=== PATIENT | female | born 1970 | race Caucasian/White ===

== ENCOUNTER 2018-03-21 14:48 | Outpatient (REF) | payer BC, MEDICAID, SELFPAY | END 2018-03-21 15:08 | LOC: NCHCN 14:48 | PROVIDERS: PCP Family Medicine; Visit Provider Family Medicine | DX: R35.0 Frequency of micturition (principal); E31.9 Polyglandular dysfunction, unspecified | CPT/HCPCS: 87077; 87086; 87186 ==

== ENCOUNTER 2018-10-11 19:03 | Outpatient (REF) | payer MEDICAID, SELFPAY ==
[2018-10-11 22:08] LABS: ALT 18 U/L (12-78); AST 12 U/L (15-37); Albumin 3.7 g/dL (3.4-5.0); Alkaline Phosphatase 52 U/L (46-116); Anion Gap 9.1 mmol/L (3-11); BUN 18 mg/dL (7-18); Bilirubin, Total 0.5 mg/dL (0.2-1.0); CO2 25.9 mmol/L (21.0-32.0); CREATININE 0.87 mg/dL (0.55-1.02); Calcium 8.7 mg/dL (8.5-10.1); Chloride 104 mmol/L (98-107); Glucose 87 mg/dL (70-100); Potassium 3.8 mmol/L (3.5-5.1); Sodium 139 mmol/L (136-145); Total Protein 6.7 g/dL (6.4-8.2)
== END 2018-10-11 19:23 ==
LOC: NCHCN 19:03
PROVIDERS: PCP Family Medicine; Visit Provider Family Medicine
DX: B35.1 Tinea unguium (principal)
CPT/HCPCS: 80053

== ENCOUNTER 2018-11-08 15:46 | Outpatient (REF) | payer MEDICAID, SELFPAY ==
[2018-11-08 22:12] LABS: ALT 23 U/L (12-78); AST 15 U/L (15-37); Albumin 3.8 g/dL (3.4-5.0); Alkaline Phosphatase 61 U/L (46-116); Bilirubin, Direct 0.13 mg/dL (0.00-0.20); Bilirubin, Total 0.5 mg/dL (0.2-1.0); Total Protein 6.7 g/dL (6.4-8.2)
== END 2018-11-08 16:06 ==
LOC: NCHCN 15:46
PROVIDERS: PCP Family Medicine; Visit Provider Family Medicine
DX: B35.1 Tinea unguium (principal)
CPT/HCPCS: 80076

== ENCOUNTER 2019-01-26 10:13 | Outpatient (REF) | payer MEDICAID, SELFPAY ==
[2019-01-26 21:24] LABS: CREATININE 0.79 mg/dL (0.55-1.02)
== END 2019-01-26 10:33 ==
LOC: NCHCN 10:13
PROVIDERS: PCP Family Medicine; Visit Provider Family Medicine
DX: Z79.899 Other long term (current) drug therapy (principal); M25.562 Pain in left knee
CPT/HCPCS: 82565

== ENCOUNTER 2019-03-26 15:21 | Outpatient (REF) | payer MEDICAID, SELFPAY ==
--- NOTE | 2019-03-26 13:30 | PAPFT_PTH ---
PATIENT: Chiquita Gómez LOC: [facility]#:[id number] AGE/SX: 49/F ROOM: RE03/26/[address]: Kaylah Alvarez : 1970 BED: DIS: 03/26/2019 SPEC #: [id number] RECD: 03/27/19 13:00 STATUS: FARNAZ REQ #: [id number] JANUSZ: 03/26/19 13:[address]: Kaylah Alvarez DEPT: [facility] Cytology RECD BY: Nadiya Lomax ENTERED: 03/27/19 13:00 SP TYPE: PAPFT OTHR DR: Denis Felix Tissues: 1 - CX/ENDOCX FOR PAP SMEARS Procedures: PAP THIN PREP/UVM Screening HPV DNA PROBE Comments: [id number]
== END 2019-03-26 15:41 ==
LOC: NCHCN 15:21
PROVIDERS: PCP Family Medicine; Visit Provider Family Medicine
DX: Z12.4 Encounter for screening for malignant neoplasm of cervix (principal); Z11.51 Encounter for screening for human papillomavirus (HPV)
CPT/HCPCS: 88142; 87624

== ENCOUNTER 2019-10-30 10:30 | Outpatient (REF) | payer MEDICAID, SELFPAY ==
[2019-10-30 20:48] LABS: ALT 21 U/L (14-59); AST 15 U/L (15-37); Albumin 4.2 g/dL (3.4-5.0); Alkaline Phosphatase 71 U/L (46-116); Bilirubin, Direct 0.14 mg/dL (0.00-0.20); Bilirubin, Total 0.6 mg/dL (0.2-1.0); Total Protein 7.3 g/dL (6.4-8.2)
== END 2019-10-30 10:50 ==
LOC: NCHCN 10:30
PROVIDERS: PCP Family Medicine; Visit Provider Family Medicine
DX: B35.1 Tinea unguium (principal)
CPT/HCPCS: 80076

== ENCOUNTER 2020-08-04 16:29 | Outpatient (REF) | payer MEDICAID, SELFPAY ==
[2020-08-05 11:32] LABS: HBs Antibody, Quant >1000.0 mIU/mL (See Note); Hepatitis B Surface Ab Positive (See Note); Measles IgG Antibody Positive (See Note); Mumps Antibody IgG Positive (See Note); Rubella IgG Ab (UVM) Positive (See Note); Varicella IgG Antibody Positive (See Note)
== END 2020-08-04 16:30 | disposition home or self-care (01) ==
LOC: NCHCN 16:29
PROVIDERS: PCP Family Medicine; Visit Provider Family Medicine
DX: Z13.89 Encounter for screening for other disorder (principal); Z11.59 Encounter for screening for other viral diseases; Z01.84 Encounter for antibody response examination
CPT/HCPCS: 86706; 86787; 86735; 86762; 86765

== ENCOUNTER 2020-09-26 15:08 | Outpatient (REF) | payer MEDICAID, SELFPAY ==
[2020-09-26 21:21] LABS: ALT 15 U/L (14-59); AST 12 U/L (15-37); Albumin 3.8 g/dL (3.4-5.0); Alkaline Phosphatase 60 U/L (46-116); Anion Gap 11.9 mmol/L (3-11); BUN 16 mg/dL (7-18); CO2 25.1 mmol/L (21.0-32.0); CREATININE 0.7 mg/dL (0.55-1.02); Chloride 104 mmol/L (98-107); Glucose 82 mg/dL (74-106); Potassium 4.2 mmol/L (3.5-5.1); Sodium 141 mmol/L (136-145); Total Protein 6.8 g/dL (6.4-8.2)
== END 2020-09-26 15:09 | disposition home or self-care (01) ==
LOC: NCHCN 15:08
PROVIDERS: PCP Family Medicine; Visit Provider Family Medicine
DX: F10.10 Alcohol abuse, uncomplicated (principal)
CPT/HCPCS: 80053

== ENCOUNTER 2020-11-21 11:20 | Outpatient (REF) | payer MEDICAID, SELFPAY ==
[2020-11-24 09:12] LABS: Hepatitis C Ab w Rflx HCV PCR Negative (Negative)
[2020-11-24 09:28] LABS: HIV-1/2 Ag & Ab Screen Negative (Negative)
[2020-11-24 11:42] LABS: Syphilis Serology (RPR) Negative (Negative)
[2020-11-24 15:41] LABS: Chlamydia Result Negative (Negative); GC Result Negative (Negative)
== END 2020-11-21 11:21 | disposition home or self-care (01) ==
LOC: NCHCN 11:20
PROVIDERS: PCP Family Medicine; Visit Provider Nurse Practitioner Family
DX: Z11.3 Encounter for screening for infections with a predominantly sexual mode of transmission (principal)
CPT/HCPCS: 86803; 87389; 87491; 87591; 86592

== ENCOUNTER 2021-03-23 22:45 | Outpatient (REF) | payer MEDICAID, SELFPAY ==
[2021-03-23 22:08] LABS: Abs Immature Grans 0.01 10^3/uL (0.0-0.06); Absolute Basophil Count 0.04 10^3/uL (0.0-0.2); Absolute Eosinophil Count 0.17 10^3/uL (0.0-0.7); Absolute Lymphocyte Count 2.33 10^3/uL (1.2-3.4); Absolute Monocyte Count 0.48 10^3/uL (0.1-0.8); Absolute Neutrophil Count 2.74 10^3/uL (1.2-6.7); Basophils % 0.7; Eosinophils % 2.9; HCT 39.5 % (36.0-46.0); HGB 13.2 g/dL (11.2-15.7); Immature Grans % 0.2; Lymphocytes % 40.4; MCH 32.4 pg (27.0-33.0); MCHC 33.4 % (32.0-36.0); MCV 97.1 fL (80-95); MPV 10.5 fL (8.0-11.0); Monocytes % 8.3; Neutrophils % 47.5; Nucleated RBC 0 %; Platelet Count 268 10^3/uL (130-400); RBC 4.07 10^6/uL (3.93-5.22); RDW 11.7 % (11.7-14.6); RDW-SD 41.8 fL; WBC 5.77 10^3/uL (4.4-10.8)
[2021-03-23 22:24] LABS: ESR 2 mm/hr (0-30)
[2021-03-23 22:29] LABS: C-Reactive Protein < 0.05 mg/dL (0.0-0.3)
[2021-03-25 15:19] LABS: Lyme Ab w Rflx to Lyme Confirm Negative (Negative)
[2021-03-26 18:33] LABS: Anaplasma phagocytophilum Negative (Negative); B. miyamotoi PCR Negative (Negative); Babesia divergens/MO-1 Negative (Negative); Babesia duncani Negative (Negative); Babesia microti Negative (Negative); Ehrlichia chaffeensis Negative (Negative); Ehrlichia ewingii/canis Negative (Negative); Ehrlichia muris eauclairensis Negative (Negative)
== END 2021-03-23 22:46 | disposition home or self-care (01) ==
LOC: NCHCN 22:45
PROVIDERS: PCP Family Medicine; Visit Provider Nurse Practitioner Community Health
DX: M25.59 Pain in other specified joint (principal); R53.83 Other fatigue; G43.909 Migraine, unspecified, not intractable, without status migrainosus; N92.0 Excessive and frequent menstruation with regular cycle
CPT/HCPCS: 85652; 87798; 85025; 86140; 86618

== ENCOUNTER 2021-10-20 18:30 | Outpatient (REF) | payer MEDICAID, SELFPAY ==
[2021-10-20 15:04] LABS: ALT 20 U/L (14-59); AST 13 U/L (15-37); Albumin 3.8 g/dL (3.4-5.0); Alkaline Phosphatase 97 U/L (46-116); Bilirubin, Direct 0.2 mg/dL (0.0-0.2); Bilirubin, Total 0.7 mg/dL (0.2-1.0); Total Protein 6.8 g/dL (6.4-8.2)
== END 2021-10-20 18:31 | disposition home or self-care (01) ==
LOC: NCHCN 18:30
PROVIDERS: PCP Family Medicine; Visit Provider Nurse Practitioner Family
DX: Z51.81 Encounter for therapeutic drug level monitoring (principal)
CPT/HCPCS: 80076

== ENCOUNTER 2022-03-31 17:42 | Outpatient (REF) | payer OTHER, SELFPAY ==
[2022-03-31 17:07] LABS: TSH (W/Ref FT4) 0.15 uIU/mL (0.36-3.74)
[2022-03-31 17:29] LABS: FREE T4 0.84 ng/dL (0.76-1.46)
== END 2022-03-31 17:43 | disposition home or self-care (01) ==
LOC: NCHCN 17:42
PROVIDERS: PCP Family Medicine; Visit Provider Family Medicine
DX: R94.6 Abnormal results of thyroid function studies (principal)
CPT/HCPCS: 84439; 84443

== ENCOUNTER 2022-06-24 15:27 | Outpatient (REF) | payer OTHER, SELFPAY ==
[2022-06-26 09:22] LABS: HIV-1/2 Ag & Ab Screen Negative (Negative)
[2022-06-27 12:22] LABS: Chlamydia Result Negative (Negative); GC Result Negative (Negative)
[2022-06-28 09:28] LABS: HBs Antibody, Quant >1000.0 mIU/mL (See Note); Hepatitis B Surface Ab Positive (See Note)
[2022-06-28 10:21] LABS: Hepatitis C Ab w Rflx HCV PCR Negative (Negative)
[2022-06-28 10:31] LABS: Syphilis Serology (RPR) Negative (Negative)
== END 2022-06-24 15:28 | disposition home or self-care (01) ==
LOC: NCHCN 15:27
PROVIDERS: PCP Family Medicine; Visit Provider Family Medicine
DX: Z11.3 Encounter for screening for infections with a predominantly sexual mode of transmission (principal); Z11.4 Encounter for screening for human immunodeficiency virus [HIV]; Z11.59 Encounter for screening for other viral diseases; N89.8 Other specified noninflammatory disorders of vagina
CPT/HCPCS: 86706; 86803; 87389; 87491; 87591; 86592; 87480; 87510; 87660

== ENCOUNTER 2023-02-14 09:16 | Outpatient (CLI) | payer MEDICAID, SELFPAY ==
[2023-02-14 10:45] LABS: ALT 19 U/L (14-59); AST 6 U/L (15-37); Albumin 3.6 g/dL (3.4-5.0); Alkaline Phosphatase 59 U/L (46-116); Bilirubin, Direct 0.2 mg/dL (0.0-0.2); Bilirubin, Total 0.8 mg/dL (0.2-1.0); Total Protein 6.3 g/dL (6.4-8.2)
== END 2023-02-14 09:17 | disposition home or self-care (01) ==
LOC: LBO 09:17
PROVIDERS: PCP Family Medicine; Visit Provider Physician Assistant Medical
DX: B35.1 Tinea unguium (principal); Z79.899 Other long term (current) drug therapy
CPT/HCPCS: 36415; 80076

== ENCOUNTER 2023-04-04 10:28 | Outpatient (CLI) | payer MEDICAID, SELFPAY ==
[2023-04-04 09:21] LABS: ALT 16 U/L (14-59); AST 14 U/L (15-37); Alkaline Phosphatase 71 U/L (46-116); Bilirubin, Direct 0.2 mg/dL (0.0-0.2); Bilirubin, Total 0.9 mg/dL (0.2-1.0); Total Protein 7.4 g/dL (6.4-8.2)
== END 2023-04-04 10:29 | disposition home or self-care (01) ==
PROVIDERS: PCP Family Medicine; Visit Provider Physician Assistant Medical
DX: B35.1 Tinea unguium (principal); B35.3 Tinea pedis; Z79.899 Other long term (current) drug therapy
CPT/HCPCS: 36415; 80076; 84439; 84443

== ENCOUNTER 2023-04-11 04:06 | Outpatient (CLI) | payer MEDICAID, SELFPAY ==
[2023-04-11 14:31] LABS: FREE T4 0.93 ng/dL (0.76-1.46)
== END 2023-04-11 04:07 | disposition home or self-care (01) ==
LOC: LBO 04:06
PROVIDERS: PCP Family Medicine; Visit Provider Internal Medicine Endocrinology, Diabetes & Metabolism
DX: E05.00 Thyrotoxicosis with diffuse goiter without thyrotoxic crisis or storm (principal)
CPT/HCPCS: 36415; 84439; 84443

== ENCOUNTER 2023-08-16 12:58 | Outpatient (REF) | payer MEDICAID, SELFPAY | END 2023-08-16 12:59 | disposition home or self-care (01) | LOC: LBN 12:58 | PROVIDERS: PCP Family Medicine; Visit Provider Physician Assistant Medical | DX: N39.0 Urinary tract infection, site not specified (principal) | CPT/HCPCS: 87086 ==

== ENCOUNTER 2023-09-05 09:40 | Outpatient (CLI) | payer MEDICAID, SELFPAY ==
[2023-09-05 10:26] LABS: TSH 4.92 uIU/Ml (0.36-3.74)
== END 2023-09-05 09:41 | disposition home or self-care (01) ==
LOC: LBO 09:40
PROVIDERS: PCP Family Medicine; Visit Provider Internal Medicine Endocrinology, Diabetes & Metabolism
DX: E05.00 Thyrotoxicosis with diffuse goiter without thyrotoxic crisis or storm (principal)
CPT/HCPCS: 36415; 84439; 84443

== ENCOUNTER 2023-10-28 12:47 | Outpatient (REF) | payer MEDICAID, SELFPAY ==
[2023-10-28 14:46] LABS: Hemoglobin A1C 5.2 % (<5.7)
[2023-10-28 14:49] LABS: ALT 23 U/L (14-59); AST 11 U/L (15-37); Albumin 4.4 g/dL (3.4-5.0); Alkaline Phosphatase 55 U/L (46-116); BUN 17 mg/dL (7-18); Bilirubin, Total 1.1 mg/dL (0.2-1.0); CREATININE 0.8 mg/dL (0.55-1.02); Calcium 9.5 mg/dL (8.5-10.1); Calculated LDL 97 mg/dL (<100); Chloride 104 mmol/L (98-107); Cholesterol 217 mg/dL (<200); Glucose 94 mg/dL (74-106); HDL Cholesterol 110 mg/dL (40-60); Potassium 4.6 mmol/L (3.5-5.1); Sodium 142 mmol/L (136-145); Total Protein 7.5 g/dL (6.4-8.2); Triglyceride 51 mg/dL (<150)
[2023-10-29 08:59] LABS: HIV-1/2 Ag & Ab Screen Negative (Negative)
[2023-10-31 10:17] LABS: Hepatitis C Ab w Rflx HCV PCR Negative (Negative)
[2023-10-31 14:15] LABS: Syphilis Serology (RPR) Negative (Negative)
== END 2023-10-28 12:48 | disposition home or self-care (01) ==
LOC: NCHCN 12:47
PROVIDERS: PCP Family Medicine; Visit Provider Family Medicine
DX: Z00.00 Encounter for general adult medical examination without abnormal findings (principal); Z13.1 Encounter for screening for diabetes mellitus; Z11.3 Encounter for screening for infections with a predominantly sexual mode of transmission; Z11.4 Encounter for screening for human immunodeficiency virus [HIV]; Z13.220 Encounter for screening for lipoid disorders; Z11.59 Encounter for screening for other viral diseases
CPT/HCPCS: 80053; 80061; 86803; 87389; 83036; 86592

== ENCOUNTER 2023-12-12 09:05 | Outpatient (CLI) | payer MEDICAID, SELFPAY ==
[2023-12-12 10:03] LABS: FREE T4 0.91 ng/dL (0.76-1.46); TSH 3.52 uIU/Ml (0.36-3.74)
== END 2023-12-12 09:06 | disposition home or self-care (01) ==
LOC: LBO 09:07
PROVIDERS: PCP Family Medicine; Visit Provider Internal Medicine Endocrinology, Diabetes & Metabolism
DX: E05.00 Thyrotoxicosis with diffuse goiter without thyrotoxic crisis or storm (principal)
CPT/HCPCS: 36415; 84439; 84443

== ENCOUNTER 2023-12-20 13:04 | Outpatient (CLI) | payer MEDICAID, SELFPAY ==
[2023-12-20 14:23] LABS: HCT 37.4 % (36.0-46.0); HGB 12.7 g/dL (11.2-15.7); MCH 32.6 pg (27.0-33.0); MCV 96 fL (80-95); MPV 9.4 fL (8.0-11.0); Platelet Count 229 10^3/uL (130-400); RBC 3.89 10^6/uL (3.93-5.22); RDW 11.9 % (11.7-14.6); RDW-SD 41.8 fL; WBC 5.64 10^3/uL (4.4-10.8)
[2023-12-20 14:48] LABS: ALT 19 U/L (14-59); AST 9 U/L (15-37); Albumin 3.7 g/dL (3.4-5.0); Alkaline Phosphatase 55 U/L (46-116); Anion Gap 8.2 mmol/L (3-11); BUN 17 mg/dL (7-18); Bilirubin, Total 1.34 mg/dL (0.2-1.0); CO2 28.8 mmol/L (21.0-32.0); Calcium 8.8 mg/dL (8.5-10.1); Chloride 103 mmol/L (98-107); Estimated GFR 66.95 (mL/min/1.73m2); FREE T4 0.94 ng/dL (0.76-1.46); Glucose 116 mg/dL (74-106); Potassium 4.4 mmol/L (3.5-5.1); Sodium 140 mmol/L (136-145); TSH 0.82 uIU/Ml (0.36-3.74); Total Protein 6.9 g/dL (6.4-8.2)
[2023-12-20 22:28] LABS: T3,Free 3.2 pg/mL (2.8-5.3)
== END 2023-12-20 13:05 | disposition home or self-care (01) ==
LOC: LBO 13:04
PROVIDERS: PCP Family Medicine; Visit Provider Internal Medicine Endocrinology, Diabetes & Metabolism
DX: E05.00 Thyrotoxicosis with diffuse goiter without thyrotoxic crisis or storm (principal)
CPT/HCPCS: 36415; 80053; 85027; 84439; 84443; 84481

== ENCOUNTER 2024-02-17 14:15 | Outpatient (CLI) | payer MEDICAID, SELFPAY ==
[2024-02-17 14:31] LABS: Abs Immature Grans 0.01 10^3/uL (0.0-0.06); Absolute Basophil Count 0.02 10^3/uL (0.0-0.2); Absolute Eosinophil Count 0.18 10^3/uL (0.0-0.7); Absolute Lymphocyte Count 1.86 10^3/uL (1.2-3.4); Absolute Monocyte Count 0.31 10^3/uL (0.1-0.8); Absolute Neutrophil Count 2.84 10^3/uL (1.2-6.7); Basophils % 0.4 %; Eosinophils % 3.4 %; HCT 36.8 % (36.0-46.0); HGB 12.4 g/dL (11.2-15.7); Immature Grans % 0.2 %; Lymphocytes % 35.6 %; MCH 32.3 pg (27.0-33.0); MCHC 33.7 % (32.0-36.0); MCV 96 fL (80-95); MPV 9.3 fL (8.0-11.0); Monocytes % 5.9 %; Neutrophils % 54.5 %; Platelet Count 223 10^3/uL (130-400); RBC 3.84 10^6/uL (3.93-5.22); RDW 12.1 % (11.7-14.6); RDW-SD 42.3 fL; WBC 5.22 10^3/uL (4.4-10.8)
[2024-02-17 15:22] LABS: ALT 15 U/L (14-59); AST 13 U/L (15-37); Albumin 3.8 g/dL (3.4-5.0); Alkaline Phosphatase 68 U/L (46-116); Anion Gap 8.3 mmol/L (3-11); BUN 15 mg/dL (7-18); Bilirubin, Direct 0.2 mg/dL (0.0-0.2); Bilirubin, Total 1.09 mg/dL (0.2-1.0); CO2 28.7 mmol/L (21.0-32.0); CREATININE 0.9 mg/dL (0.55-1.02); Calcium 9.1 mg/dL (8.5-10.1); Chloride 103 mmol/L (98-107); Glucose 130 mg/dL (74-106); Sodium 140 mmol/L (136-145)
== END 2024-02-17 14:16 | disposition home or self-care (01) ==
LOC: LBO 14:17
PROVIDERS: PCP Family Medicine; Visit Provider Physician Assistant Medical
DX: L57.0 Actinic keratosis (principal); B35.1 Tinea unguium; B07.8 Other viral warts; Z78.9 Other specified health status; L08.89 Other specified local infections of the skin and subcutaneous tissue; R23.8 Other skin changes; Z79.899 Other long term (current) drug therapy
CPT/HCPCS: 36415; 80048; 80076; 85025

== ENCOUNTER 2024-03-27 12:25 | Outpatient (CLI) | payer MEDICAID, SELFPAY ==
[2024-03-27 12:03] LABS: ALT 14 U/L (14-59); AST 14 U/L (15-37); Alkaline Phosphatase 65 U/L (46-116); Bilirubin, Direct 0.2 mg/dL (0.0-0.2); Bilirubin, Total 1.08 mg/dL (0.2-1.0); Total Protein 7.4 g/dL (6.4-8.2)
== END 2024-03-27 12:26 | disposition home or self-care (01) ==
LOC: LBO 12:26
PROVIDERS: PCP Family Medicine; Visit Provider Physician Assistant Medical
DX: Z79.899 Other long term (current) drug therapy (principal); B35.1 Tinea unguium
CPT/HCPCS: 36415; 80076

== ENCOUNTER 2024-04-30 12:59 | Outpatient (CLI) | payer MEDICAID, SELFPAY ==
[2024-04-30 09:50] LABS: Lipase 55 U/L (<78)
== END 2024-04-30 13:00 | disposition home or self-care (01) ==
LOC: LBO 12:59
PROVIDERS: PCP Family Medicine; Visit Provider Family Medicine
DX: K85.90 Acute pancreatitis without necrosis or infection, unspecified (principal)
CPT/HCPCS: 36415; 83690

== ENCOUNTER 2024-07-26 02:04 | Outpatient (CLI) | payer MEDICAID, SELFPAY ==
--- NOTE | 2024-07-26 06:45 | DI.MRI_ITS ---
Exam(s) MR LUMBAR SPINE WO EXAM: MR LUMBAR SPINE WO CLINICAL HISTORY: pain,lumbar radiculitis,m54.16,radiculopathy. TECHNIQUE: Multiplanar multisequence MRI of the Lumbar spine was performed. COMPARISON: No exams were available for comparison FINDINGS: Bones: The last intervertebral disc space is designated the L5/S1 level for the numbering purpose of this ex amination. The vertebral body heights are well maintained. Alignment: Unremarkable. Marrow: Degenerative signal changes in the endplates at L4-5 and L5-S1, Modic type 2. Cord: The conus tip ends at the T12 level. It is of normal size and signal intensity. T12-L1: No focal disc herniation is present. No central spinal canal stenosis.No neural foraminal st enosis. L1-2: No focal disc herniation is present. No central spinal canal stenosis.No neural foraminal sten osis. L2-3: No focal disc herniation is present. No central spinal canal stenosis.No neural foraminal bright nosis. L3-4: No focal disc herniation is present. No central spinal canal stenosis.No neural foraminal bright nosis. L4-5: Mild loss of disc height, eccentric toward the right. Mild disc bulging. No focal disc jose iation is present. No central spinal canal stenosis.No neural foraminal stenosis. L5-S1: Mild loss of disc height. Small endplate osteophytes. Broad-based disc bulging. Small focal disc protrusion eccentric toward the right which may mildly impinge on the right nerve root. No sig nificant impingement on the thecal sac. No central spinal canal stenosis.No neural foraminal stenos is. The visualized SI joints and sacrum are unremarkable. Soft tissues: The paraspinal soft tissues are unremarkable. Enlarged uterus. IMPRESSION: Small right paracentral disc protrusion at L 5 S1 with likely nerve root impingement. No evidence of significant spinal stenosis or neuroforaminal narrowing. DATA REPOSITORY:
== END 2024-07-26 02:24 ==
LOC: DI 02:04
PROVIDERS: PCP Family Medicine; Visit Provider Anesthesiology Pain Medicine
DX: M54.16 Radiculopathy, lumbar region (principal)
CPT/HCPCS: 72148

== ENCOUNTER 2024-08-03 16:33 | Outpatient (CLI) | payer MEDICAID, SELFPAY ==
[2024-08-03 17:09] LABS: TSH 0.72 uIU/mL (0.36-3.74)
== END 2024-08-03 16:34 | disposition home or self-care (01) ==
LOC: LBO 16:34
PROVIDERS: PCP Family Medicine; Visit Provider Student in an Organized Health Care Education/Training Program
DX: E05.00 Thyrotoxicosis with diffuse goiter without thyrotoxic crisis or storm (principal)
CPT/HCPCS: 36415; 84439; 84443

== ENCOUNTER 2024-11-08 02:01 | Outpatient (CLI) | payer MEDICAID, SELFPAY ==
[2024-11-08 15:29] LABS: FREE T4 0.86 ng/dL (0.76-1.46); TSH 1.89 uIU/mL (0.36-3.74)
== END 2024-11-08 02:02 | disposition home or self-care (01) ==
LOC: LBO 02:01
PROVIDERS: PCP Family Medicine; Visit Provider Student in an Organized Health Care Education/Training Program
DX: E05.00 Thyrotoxicosis with diffuse goiter without thyrotoxic crisis or storm (principal)
CPT/HCPCS: 36415; 84439; 84443

== ENCOUNTER 2025-03-25 10:06 | Day surgery (SDC) | payer MEDICAID, SELFPAY ==
[2025-03-25 10:32] VITALS: BP 112/84; PULSE 71; RESP 16; TEMP 35.6; O2SAT 99
[2025-03-25] MEDS: Lactated Ringers 1,000 ML 80 ML IV (10:42)
--- NOTE | 2025-03-25 10:57 | W.ANESPRE ---
General Info Date of Service Date Performed: 03/25/25 Height: 5 ft 7 in Weight: 67.585 kg Body Mass Index (BMI): 23.3 Surgical Procedure: Operation Date: 03/25/25 12:20 Proposed Procedure Side Surgeon elizabeth Block MD Meds Allergies and Home Medications Allergies Allergy/AdvReac Type Severity Reaction Status Date / Time Penicillins Allergy Mild rash Verified 03/25/25 10:32 hydromorphone (From Dilaudid) AdvReac Mild Itching Verified 03/25/25 10:32 Home Medication ?Medication ?Instructions ?Recorded ascorbate calcium (vitamin C) 500 500 mg PO DAILY 03/03/22 mg tablet cyanocobalamin (vitamin B-12) 1,000 mcg PO DAILY 03/03/22 1,000 mcg capsule estradiol 0.0375 mg/24 hr 1 patch transdermal ONCE 03/03/22 semiweekly transdermal patch methimazole 10 mg tablet 10 mg PO DAILY 08/16/23 cyclobenzaprine 5 mg tablet 5 mg PO QHS 05/28/24 sumatriptan succinate 100 mg tablet See Rx Instructions PO .COMPLEX 05/28/24 bisacodyl 5 mg tablet,delayed 5 mg PO ONCE #4 tabs 03/14/25 release (Dulcolax (bisacodyl)) polyethylene glycol 3350 17 17 g PO ONCE #238 grams 03/14/25 gram/dose oral powder progesterone micronized 100 mg 100 mg PO QPM 03/14/25 capsule valacyclovir 500 mg tablet 500 mg PO DAILY PRN 03/14/25 Current Visit Medications: Current Medications Generic Name Dose Route Start Last Admin Trade Name Allanq PRN Reason Stop Dose Admin Ringer's Solution 1,000 mls @ 80 mls/hr 03/25/25 06:00 03/25/25 10:42 IV 03/25/25 23:59 80 mls/hr INFUSION JENNIFER Administration IV Miscellaneous Supplies 1 each 03/25/25 06:00 Iv Access IV 03/25/25 23:59 DIRECTED JENNIFER Sodium Chloride 0 ml 03/25/25 06:00 Normal Saline Flush 10 Ml Syr IV 03/25/25 23:59 PRN PRN Sodium Chloride 0 ml 03/25/25 06:00 Normal Saline 10 Ml Vial IJ 03/25/25 23:59 DIRECTED PRN Sterile Water 0 ml 03/25/25 06:00 Water,Injection,Sterile 10 Ml Vial IJ 03/25/25 23:59 DIRECTED PRN PFSH Active Problems Active Problems: Problem Status Onset Code Lumbar radiculitis Acute M54.16 Nail dystrophy Acute L60.3 Medical History Medical History labor Uterine leiomyoma Thyrotoxicosis DM (dystrophia myotonica) Fatigue Postmenopausal bleeding Tinea pedis Joint pain Carpal tunnel syndrome Knee pain, bilateral Pain, joint, knee, left Dysuria Pain in left knee Acute urinary tract infection History of colon polyps Family history of breast cancer Epidermoid cyst of skin Onychomycosis Sleep disorder Rosacea Migraine Major depression Graves' disease Pain in right hip Thyroid function test abnormal Therapeutic drug monitoring Menopause present Low back pain Excessive and frequent menstruation Family problems Idiopathic osteoarthritis Generalized anxiety disorder 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 1. nondisplaced transverse fracture through the distal tuft 2. avulsion fracture of the base of the left first proximal phalanx on the medial side. Surgical History Surgical History History of left hip replacement History of endometrial biopsy History of carpal tunnel surgery H/O cone biopsy of cervix Tobacco Smoking/Tobacco Use Status: Never Alcohol Alcohol Intake: former Substance Use Substance use: Socially Substance use type: marijuana Vital Signs and Lab Results Vital Signs Most Recent Vital Signs in EMR: Most Recent Vital Signs Temp Pulse Resp BP Pulse Ox 35.6 C L 71 16 112/84 99 03/25/25 10:32 03/25/25 10:32 03/25/25 10:32 03/25/25 10:32 03/25/25 10:32 Anesthesia Assessment and Plan Anesthesia History Personal History: No History of Anesthesia Complications Family History: No Family History of Anesthesia Complications Exercise Tolerance Exercise Tolerance: Metabolic Equivalents>4 Pertinent Negatives Pertinent Negatives: No Symptoms of GERD, No Major Cardiovascular Symptoms or Complaints and No Major Pulmonary Symptoms or Complaints Cardiac & Pulmonary Exam Cardiac Exam: Normal S1/S2 Heart Sounds Pulmonary Exam: Clear Bilateral Breath Sounds Implantable Cardiac Device Does patient have a Pacemaker or an ICD?: No Airway Exam Known Difficult Airway: No Mallampati Class: 2 Mouth Opening: Normal (> 3cm) Thyromental Distance: Greater than 3 cm Neck Range of Motion: Full ROM Neck Circumference: Normal Teeth Condition: Normal Dentition ASA Classification ASA Score: ASA 2 Emergency Case?: No NPO Status NPO Status: NPO Clears >2 hours, Solids >8 hours Anesthesia Plan Resuscitation Status: Full Code Anesthesia Technique: General Anesthesia Airway Planned: Natural Airway Monitors Used: Standard Monitors
[2025-03-25 11:02] VITALS: BMI 23.3
--- NOTE | 2025-03-25 12:04 | PDOC.DSDIS_ITS ---
Date of service: 03/25/25 Discharge Plan Disposition Patient Disposition: Home Condition: Stable Discharge Details Attending Provider: Candelaria Block Primary Care Provider: Denis Felix Home Meds and New Rx's Prescriptions: Continued ascorbate calcium (vitamin C) 500 mg tablet 500 mg PO DAILY cyanocobalamin (vitamin B-12) 1,000 mcg capsule 1,000 mcg PO DAILY estradiol 0.0375 mg/24 hr patch semiweekly 1 patch transdermal ONCE Patient Comments: currently has patch on methimazole 10 mg tablet 10 mg PO DAILY cyclobenzaprine 5 mg tablet 5 mg PO QHS sumatriptan succinate 100 mg tablet See Rx Instructions PO .COMPLEX Rx Instructions: take 1 tab at onset of headache; if no relief, may repeat 1 tab after at leas t 2 hrs; max = 2 tabs/24 hrs PO progesterone micronized 100 mg capsule 100 mg PO QPM Rx Instructions: off 7 days; repeat cycle valacyclovir 500 mg tablet 500 mg PO DAILY PRN Discontinued bisacodyl [Dulcolax (bisacodyl)] 5 mg tablet,delayed release (DR/EC) 5 mg PO ONCE Qty: 4 0RF Rx Instructions: Take per colonoscopy instructions provided by ordering providers office polyethylene glycol 3350 17 gram/dose powder 17 g PO ONCE Qty: 238 0RF Rx Instructions: Take per colonoscopy instructions provided by ordering providers office Discharge Instructions Additional Instructions: Normal colonoscopy, zero polyps growing in your colon at this time. Since you had precancerous adenomas in the past, I recommend your next colonoscopy be in 5 years again. If zero polyps again in 5 years, you can return to the 10 year screening pool. Stand Alone Forms: Anesthesia Discharge Inst., Colonoscopy Post Instructions, Dangelo Segura (DSU) Activity:: Activity as Tolerated Diet:: As Tolerated Discharge Orders Discharge Orders: Discharge Order (Routine); Ordered 03/25/25 Ordered By: Candelaria Block DS: Diagnosis Discharge Diagnosis (1) Encounter for colonoscopy due to history of adenomatous colonic polyps: Status: Acute
[2025-03-25 12:08] VITALS: BP 87/60; PULSE 61; RESP 16; TEMP 36.1; O2SAT 98
--- NOTE | 2025-03-25 12:11 | COLE_ITS ---
Date of service: 03/25/25 Time of Service: 12:28 Colonoscopy Report Date of procedure: 03/25/25 Pre-op diagnosis general: History of colon polyps Post-op diagnosis procedure note: same Procedure: Colonoscopy Surgeon: Candelaria Block Anesthesia Type: General:No Airway Estimated blood loss (mL): 0 Pathology: none sent Complications: None Prep: Miralax/Dulcolax (Good) Procedure Description: Informed consent was obtained and the patient was taken to the procedure area. The patient was placed in left lateral decubitus position on the procedure table. Timeout was performed. Anesthesia was induced. A lubricated colonoscop e was inserted through the anus and passed to the cecum. The cecum was identified by the ileocecal valve and the appendiceal orifice. The scope was then slowly withdrawn and the colonic and rectal mucosa examined. TI intubated and examined. It appears normal. There are no colon or rectal mass lesions, polyps, AVMs. There is no inflammatory change. No diverticulosis was seen. The scope was retroflexed in the anorectal junction examined. Uncomplicated internal hemorrhoids present. Assessment and plan: history of tubular adenoma Normal colonoscopy. Next screening colonoscopy will be due in 5 years. If no polyps again in 5 years, patient can return to the 10 year screening pool.
--- NOTE | 2025-03-25 12:17 | W.ANESPOSTOP ---
Postoperative Evaluation Date, Time and Location Date Performed: 03/25/25 Time Performed: 12:18 Patient Location: Day Surgery Unit Vital Signs Most Recent Imported Vital Signs: Most Recent Vital Signs Temp Pulse Resp BP Pulse Ox 36.1 C L 61 16 87/60 L 98 03/25/25 12:08 03/25/25 12:08 03/25/25 12:08 03/25/25 12:08 03/25/25 12:08 Pain Score Most Recent Pain Score: Most Recent Pain Score Pain Level 0 03/25/25 12:08 Assessment Mental Status: Awake (Alert & Oriented to Patient Baseline) Airway and Respiratory Function: Patent airway with normal (patient baseline) respiratory exam Cardiovascular Function: Hemodynamically Stable Hydration Status: Adequately Hydrated Nausea & Vomiting: No Nausea or Vomiting Pain: Pt. Denies Any Pain Peripheral Nerve Block: Patient did not receive a nerve block
[2025-03-25 12:36] VITALS: BP 105/77; PULSE 67; RESP 16; TEMP 36.4; O2SAT 100
== END 2025-03-25 12:52 | disposition home or self-care (01) ==
LOC: SUR 10:06
PROVIDERS: PCP Family Medicine; Visit Provider Surgery
PROC: 0DJD8ZZ Inspection of Lower Intestinal Tract, Via Natural or Artificial Opening Endoscopic (ICD-10-PCS; CPT 45378; principal; 2025-03-25 12:15)
DX: Z12.11 Encounter for screening for malignant neoplasm of colon (principal); Z86.0101 Personal history of adenomatous and serrated colon polyps
CPT/HCPCS: 45378; J2704